=== PATIENT | male | born 1965 | race Caucasian/White ===

== ENCOUNTER 2019-01-01 13:39 | Emergency (ER) | payer MEDICAID ==
[~2019-01-01] VITALS: Ht 180.3 cm; Wt 119.7 kg
[2019-01-01 13:59] VITALS: Ht 180.3 cm; Wt 119.7 kg
[2019-01-01 15:23] VITALS: BP 146/108
== END 2019-01-01 15:23 | disposition home or self-care (01) ==
LOC: ED 13:39
DX: S63.502A Unspecified sprain of left wrist, initial encounter (principal); V19.3XXA Pedal cyclist (driver) (passenger) injured in unspecified nontraffic accident, initial encounter; Y93.I9 Activity, other involving external motion; Y92.413 State road as the place of occurrence of the external cause; Y99.8 Other external cause status
CPT/HCPCS: A4570